=== PATIENT | female | born 1990 | race American Indian/Alaskan Native ===

== ENCOUNTER 2016-10-31 20:09 | Outpatient (CLI) | payer MEDICAID ==
[2016-10-31] MEDS ORDERED: LACTATED RINGERS 500 ML IV ONE (21:05)
--- NOTE | 2016-10-31 23:33 | Ultrasound Report ---
FINAL REPORT PROCEDURE: Limited obstetrical ultrasound. TECHNIQUE: Real-time limited sonographic examination was performed for evaluation of size, position, heartbeat, fluid volume for each fetus with image documentation (1 or more fetuses). CPT 46833 HISTORY: Placental scan for vaginal bleeding, . COMPARISON: No prior studies are available for comparison. FINDINGS: There is a single viable fetus in cephalic presentation. Cardiac activity is documented at 151 beats per minute. The placenta is anterior in location. Near the superior margin of the placenta there is a small elliptical area of decreased echogenicity. This measures 1.5 centimeters x 1.6 centimeters x 0.5 centimeters. This could represent a small area of placental separation or simply normal amniotic fluid at the margin of the placenta. Followup imaging may be indicated. IMPRESSION: Indeterminate finding at the superior edge of the placenta. Viable fetus.
[2016-11-01 01:58] VITALS: BP 97/63
== END 2016-10-31 22:15 | disposition home or self-care (01) ==
LOC: TRG 20:09
PROVIDERS: ATTEND Obstetrics & Gynecology
DX: O46.92 Antepartum hemorrhage, unspecified, second trimester (principal); O47.02 False labor before 37 completed weeks of gestation, second trimester; Z3A.22 22 weeks gestation of pregnancy
CPT/HCPCS: 76815; 86850; 86900; 86901

== ENCOUNTER 2017-02-24 20:40 | Outpatient (CLI) | payer MEDICAID ==
[2017-02-24 20:59] VITALS: BP 95/54
== END 2017-02-24 22:10 | disposition home or self-care (01) ==
LOC: TRG 20:40
PROVIDERS: ATTEND Obstetrics & Gynecology
DX: O47.1 False labor at or after 37 completed weeks of gestation (principal); Z3A.39 39 weeks gestation of pregnancy
CPT/HCPCS: 59025

== ENCOUNTER 2017-03-03 03:45 | Inpatient (IN) | payer MEDICAID ==
[2017-03-03] MEDS ORDERED: LACTATED RINGERS 1,000 ML IV ONE (04:16)
[2017-03-03] MEDS ORDERED: POLYCILLIN/NS 2 GM/100 ML 2 GM/100 ML BAG IV ONE (05:26)
[2017-03-03] MEDS ORDERED: ePHEDrine SULFATE IV PRN ×2 (05:32→08:34)
[2017-03-03] MEDS ORDERED: MINERAL OIL PO PRN (05:32)
[2017-03-03] MEDS ORDERED: BRETHINE SUB-Q PRN (05:32)
[2017-03-03] MEDS ORDERED: XYLOCAINE 2% INFILTRATI ONE (05:32)
[2017-03-03] MEDS ORDERED: ZOFRAN IV PRN (05:32)
--- NOTE | 2017-03-03 05:39 | History and Physical Report ---
History of Present Illness Date of examination: 03/03/17 (active labor with SROM) Date of admission: 03/03/17 05:25 History of present illness: EDC Confirmation: 03/03/2017 Gestational Age: 23 4/7 weeks Past History : 2 Term Births: 1 Premature Births: 0 Living Children: 1 Para: 1 Mult. Births: 0 Prev : 0 Prev. attempt? 0 Aborta: 0 Elect. Ab: 0 Spont. Ab: 0 Ectopics: 0 # 1 Delivery date: 02/06/2014 Weeks Gestation: 39 labor: no Delivery type: Hours of labor: 10 Anesthesia type: epidural Delivery location: [place] Sex: Male weight: 7-6 Name: Cheo Past Medical History: Negative Past Medical History Past Surgical History: Negative Past Surgical History Family History Summary: Other family member - Has No Family History of Ovarvian Cancer - Entered On: 11/08 Other family member - Has No Family History of Breast Cancer - Entered On: 2016 Other family member - Has Family History of Hypertension - Entered On: 11/08/2016 Other family member - Has Family History of CVA or Stroke - Entered On: 11/08/2016 Other family member - Has Family History Colon Cancer - Entered On: 11/08/2016 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 of genital herpes: no Genetic History Congenital Heart Defect: Mom: no Dad: no Yogi Disease: Mom: no Dad: no Thalassemia Mom: no Dad: no Neural Tube Defect Mom: no Dad: no Down's Syndrome Mom: no Dad: no Manan-Sachs Mom: no Dad: no Sickle Cell Disease/Trait Mom: no Dad: no Hemophilia Mom: no Dad: no Muscular Dystrophy Mom: no Dad: no Cystic Fibrosis Mom: no Dad: no [place] Chorea Mom: no Dad: no Mental Retardation Mom: no Dad: no Fragile X Mom: no Dad: no Other Genetic/Chromosomal Disorder Mom: no Dad: no Child w/other defect Mom: no Dad: no Enviromental Exposures Xray Exposure: no Medication, drug, or alcohol use since LMP: no Chemical/Other Exposure: no Exposure to Cat Liter: no Hx of Parvovirus (Fifth Disease): no Active Medications (reviewed today): FORMULA 27-1 MG ORAL TABS ( VIT-FE FUMARATE-FA) 1 po q day as directed Current Allergies: No known allergies Laboratory Results Routine Urinalysis Protein: Negative Glucose: Negative Urine HCG: positive Review of Systems General Complains of fatigue. Denies fever, chills, sweats, anorexia, weakness, malaise, weight loss and sleep disorder. Complains of pelvic pain. Denies vaginal discharge, incontinence, dysuria, hematuria, urinary frequency, amenorrhea, menorrhagia, abnormal vaginal bleeding, genital sores, decreased libido, painful periods, painful sex, urinary urgency, hot flashes, vaginal dryness, vaginal itching and vaginal odor. CV Denies chest pains, palpitations, syncope, dyspnea on exertion, orthopnea, PND and peripheral edema. Resp Denies cough, dyspnea at rest, excessive sputum, hemoptysis, wheezing and pleurisy. GI Denies nausea, vomiting, diarrhea, constipation, change in bowel habits, abdominal pain, melena, hematochezia, jaundice, gas/bloating, indigestion/ heartburn, dysphagia and odynophagia. Breast Denies left breast lump, right breast lump, nipple discharge, bloody discharge from nipple, breast pain, abnormal mammogram and breast enlargement. Psych Denies depression, anxiety, irritability and mood swings. PHYSICAL EXAM HEENT: normocephalic, no lesions or deformities Neck/Thyroid: supple, thyroid normal Skin no significant abnormal lesions or rashes Chest: respiratory effort normal, clear to auscultation Breasts: skin/areolae normal, no masses, no nipple discharge, no erythema/warmth /tenderness, and axillae normal. 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 Vulva/Vagina: No lesions, normal BUS, normal rugae Cervix: No lesions; no cervical motion tenderness Uterus: enlarged uterus 22-24 weeks in size Adnexae: Unable to palpate due to uterine size Rectovaginal: exam defered Past History - Obstetrical History Expected Date of Delivery: 03/03/17 Actual Gestation: 40 Week(s) 0 Day(s) : 2 Para: 1 Hx # Term Pregnancies: 1 Number of Pregnancies: 0 Spontaneous Abortions: 0 Induced : 0 Number of Living Children: 1 Medications and Allergies Allergies Allergy/AdvReac Type Severity Reaction Status Date / Time No Known Allergies Allergy Verified 03/03/17 03:53 Active Meds: Active Medications Ampicillin Sodium (Polycillin/Ns 2 Gm/100 Ml) 2 gm in 100 mls @ 100 mls/hr IV ONCE ONE PRN Reason: Protocol Stop: 03/03/17 06:25 Lactated Ringer's (Lactated Ringers) 1,000 mls @ 125 mls/hr IV DIRECT BIN Ampicillin Sodium (Polycillin/Ns 1 Gm/50 Ml) 1 gm in 50 mls @ 100 mls/hr IV Q4H BIN PRN Reason: Protocol - Vital Signs Vital signs: Vital Signs Pulse BP 84 102/61 03/03/17 04:02 03/03/17 04:02 Temp Pulse Resp BP Pulse Ox 80 102/58 100 03/03/17 05:23 03/03/17 05:23 03/03/17 04:53 - Physical Exam Breasts: Positive: deferred Cardiovascular: Regular rate, Normal S1, Normal S2 Abdomen: Positive: normal appearance, soft, normal bowel sounds. Negative: distention, tenderness Genitourinary (Female): Positive: normal perenium Vulva: both: normal Vagina: Positive: normal moisture. Negative: discharge Cervix: Negative: lesion, discharge Uterus: Positive: normal size, normal contour Adnexa: both: normal Anus/Rectum: Positive: normal perianal skin, heme negative. Negative: rectal mass, hemorrhoids Extremities: Positive: normal Deep Tendon Reflex Grade: Normal +2 - Obstetrical FHR: category 1 Uterine Contraction Monitor Mode: External Cervical Dilatation: 3.5 (per registered nurse bone marrow transplant) Cervical Effacement Percentage: 70 station: -2 Uterine Contraction Pattern: Regular Uterine Tone Measurement Phase: Resting Uterine Contraction Intensity: Moderate Results All other labs normal. GBS Positive Current OB Labs Blood Type: O (09/03/2016) Rh Type: positive (09/03/2016) Rh Antibody Screen: negative (09/03/2016) Hgb: 12.3 (09/03/2016) Hct: 35 (09/03/2016) Rubella: immune (09/03/2016) RPR: nonreactive (09/03/2016) Hep B Surface Antigen: negative (09/03/2016) HIV: negative (09/03/2016) Pap Smear: normal (09/03/2016) Assessment and Plan - Patient Problems (1) Group B Streptococcus carrier state affecting Onset Date: ~03/03/17 Current Visit: Yes Status: Acute Plan to address problem: Will start Ampicillin protocol for GBS treatment (2) Spontaneous rupture of membranes Onset Date: ~03/03/17 Current Visit: Yes Status: Acute Plan to address problem: 26yo @ 40 weeks with SROM clear fluid Pt states membranes ruptured @ 0200 Presented to Triage with c/o ctx SVE 3-4,70,-2 GBS+ All orders in EMR.
[2017-03-03] MEDS: SUBLIMAZE IV PRN ×2 (05:45→07:52)
[2017-03-03] MEDS ORDERED: PITOCin/NS 30 UNIT/500ML 30 UNITS/500 ML BAG IV SCH (06:00)
[2017-03-03] MEDS ORDERED: PITOCin/NS 20 UNIT/1000ML DRIP 20 UNITS/1,000 ML BAG IV SCH (06:00)
[2017-03-03] MEDS ORDERED: LACTATED RINGERS 1,000 ML IV SCH ×2 (06:00)
[2017-03-03 06:38] LABS: Basophils % (Auto) 0.1 % (0.0-1.8); Eosinophils % (Auto) 0.2 % (0.0-4.3); Hematocrit 26.5 % (30.3-42.9); Hemoglobin 8.9 gm/dl (10.1-14.3); Mean Corpuscular HGB Conc 34 % (30-34); Mean Corpuscular Hemoglobin 29 pg (28-32); Mean Corpuscular Volume 86 fl (79-97); Platelet Count 181 K/mm3 (140-440); Red Blood Count 3.07 M/mm3 (3.65-5.03); Red Cell Distribution Width 15.3 % (13.2-15.2); White Blood Count 10.4 K/mm3 (4.5-11.0)
--- NOTE | 2017-03-03 07:11 | Event Note ---
Date: 03/03/17 (pt tolerating ctx with Fentanyl) No cervical chg Will start Pitocin per protocol.
--- NOTE | 2017-03-03 07:58 | Progress Note ---
Assessment and Plan anticipate delivery - Patient Problems (1) Group B Streptococcus carrier state affecting Onset Date: ~03/03/17 Current Visit: Yes Status: Acute (2) Spontaneous rupture of membranes Onset Date: ~03/03/17 Current Visit: Yes Status: Acute Subjective - Subjective Date of service: 03/03/17 (internals placed) Interval history: EDC Confirmation: 03/03/2017 Gestational Age: 23 4/7 weeks Past History : 2 Term Births: 1 Premature Births: 0 Living Children: 1 Para: 1 Mult. Births: 0 Prev : 0 Prev. attempt? 0 Aborta: 0 Elect. Ab: 0 Spont. Ab: 0 Ectopics: 0 # 1 Delivery date: 02/06/2014 Weeks Gestation: 39 labor: no Delivery type: Hours of labor: 10 Anesthesia type: epidural Delivery location: [place] [facility] Sex: Male weight: 7-6 Name: Cheo Past Medical History: Negative Past Medical History Past Surgical History: Negative Past Surgical History Family History Summary: Other family member - Has No Family History of Ovarvian Cancer - Entered On: 11/08 Other family member - Has No Family History of Breast Cancer - Entered On: 2016 Other family member - Has Family History of Hypertension - Entered On: 11/08/2016 Other family member - Has Family History of CVA or Stroke - Entered On: 11/08/2016 Other family member - Has Family History Colon Cancer - Entered On: 11/08/2016 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 of genital herpes: no Genetic History Congenital Heart Defect: Mom: no Dad: no Yogi Disease: Mom: no Dad: no Thalassemia Mom: no Dad: no Neural Tube Defect Mom: no Dad: no Down's Syndrome Mom: no Dad: no Manan-Sachs Mom: no Dad: no Sickle Cell Disease/Trait Mom: no Dad: no Hemophilia Mom: no Dad: no Muscular Dystrophy Mom: no Dad: no Cystic Fibrosis Mom: no Dad: no [place] Chorea Mom: no Dad: no Mental Retardation Mom: no Dad: no Fragile X Mom: no Dad: no Other Genetic/Chromosomal Disorder Mom: no Dad: no Child w/other defect Mom: no Dad: no Enviromental Exposures Xray Exposure: no Medication, drug, or alcohol use since LMP: no Chemical/Other Exposure: no Exposure to Cat Liter: no Hx of Parvovirus (Fifth Disease): no Active Medications (reviewed today): FORMULA 27-1 MG ORAL TABS ( VIT-FE FUMARATE-FA) 1 po q day as directed Current Allergies: No known allergies Laboratory Results Routine Urinalysis Protein: Negative Glucose: Negative Urine HCG: positive Review of Systems General Complains of fatigue. Denies fever, chills, sweats, anorexia, weakness, malaise, weight loss and sleep disorder. Complains of pelvic pain. Denies vaginal discharge, incontinence, dysuria, hematuria, urinary frequency, amenorrhea, menorrhagia, abnormal vaginal bleeding, genital sores, decreased libido, painful periods, painful sex, urinary urgency, hot flashes, vaginal dryness, vaginal itching and vaginal odor. CV Denies chest pains, palpitations, syncope, dyspnea on exertion, orthopnea, PND and peripheral edema. Resp Denies cough, dyspnea at rest, excessive sputum, hemoptysis, wheezing and pleurisy. GI Denies nausea, vomiting, diarrhea, constipation, change in bowel habits, abdominal pain, melena, hematochezia, jaundice, gas/bloating, indigestion/ heartburn, dysphagia and odynophagia. Breast Denies left breast lump, right breast lump, nipple discharge, bloody discharge from nipple, breast pain, abnormal mammogram and breast enlargement. Psych Denies depression, anxiety, irritability and mood swings. PHYSICAL EXAM HEENT: normocephalic, no lesions or deformities Neck/Thyroid: supple, thyroid normal Skin no significant abnormal lesions or rashes Chest: respiratory effort normal, clear to auscultation Breasts: skin/areolae normal, no masses, no nipple discharge, no erythema/warmth /tenderness, and axillae normal. 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 Vulva/Vagina: No lesions, normal BUS, normal rugae Cervix: No lesions; no cervical motion tenderness Uterus: enlarged uterus 22-24 weeks in size Adnexae: Unable to palpate due to uterine size Rectovaginal: exam defered Patient reports: movement normal Objective - Vital Signs Vital Signs: Vital Signs - 12hr 03/03/17 03/03/17 03/03/17 04:02 04:03 04:08 Temperature Pulse Rate 84 86 92 H Respiratory Rate Blood Pressure 102/61 O2 Sat by Pulse 98 98 Oximetry 03/03/17 03/03/17 03/03/17 04:13 04:18 04:23 Temperature Pulse Rate 91 H 89 90 Respiratory Rate Blood Pressure O2 Sat by Pulse 98 98 98 Oximetry 03/03/17 03/03/17 03/03/17 04:28 04:33 04:38 Temperature Pulse Rate 90 98 H 86 Respiratory Rate Blood Pressure O2 Sat by Pulse 99 99 100 Oximetry 03/03/17 03/03/17 03/03/17 04:43 04:48 04:53 Temperature Pulse Rate 86 90 94 H Respiratory Rate Blood Pressure O2 Sat by Pulse 99 100 100 Oximetry 03/03/17 03/03/17 03/03/17 05:23 05:45 05:54 Temperature Pulse Rate 80 84 Respiratory 18 Rate Blood Pressure 102/58 97/54 O2 Sat by Pulse Oximetry 03/03/17 03/03/17 03/03/17 06:25 06:33 06:38 Temperature Pulse Rate 93 H 92 H 87 Respiratory Rate Blood Pressure 105/68 O2 Sat by Pulse 100 100 Oximetry 03/03/17 03/03/17 03/03/17 06:43 06:48 06:53 Temperature Pulse Rate 93 H 94 H 87 Respiratory Rate Blood Pressure 100/63 O2 Sat by Pulse 99 98 98 Oximetry 03/03/17 03/03/17 03/03/17 06:58 07:03 07:04 Temperature 98.4 F Pulse Rate 85 81 89 Respiratory 18 Rate Blood Pressure 103/68 O2 Sat by Pulse 99 99 Oximetry 03/03/17 03/03/17 03/03/17 07:08 07:09 07:13 Temperature Pulse Rate 96 H 97 H 85 Respiratory Rate Blood Pressure 105/67 O2 Sat by Pulse 98 100 Oximetry 03/03/17 03/03/17 03/03/17 07:18 07:23 07:25 Temperature Pulse Rate 91 H 90 90 Respiratory Rate Blood Pressure 90/54 O2 Sat by Pulse 99 99 93 Oximetry 03/03/17 03/03/17 03/03/17 07:28 07:33 07:38 Temperature Pulse Rate 95 H 85 81 Respiratory Rate Blood Pressure O2 Sat by Pulse 97 99 100 Oximetry 03/03/17 03/03/17 03/03/17 07:43 07:48 07:52 Temperature Pulse Rate 92 H 85 84 Respiratory 18 Rate Blood Pressure O2 Sat by Pulse 100 100 87 Oximetry 03/03/17 03/03/17 07:53 07:58 Temperature Pulse Rate 98 H 85 Respiratory Rate Blood Pressure O2 Sat by Pulse 100 100 Oximetry - Exam Breasts: deferred Cardiovascular: Regular rate Lungs: Normal air movement Abdomen: Present: normal appearance, soft. Absent: distention, tenderness Uterus: Present: normal FHR: auscultation normal, category 2 Uterine Contraction Monitor Mode: Internal Cervical Dilatation: 8 (ISE/IUPC placed) Cervical Effacement Percentage: 100 station: 0 Uterine Contraction Pattern: Regular Uterine Tone Measurement Phase: Resting Uterine Contraction Intensity: Moderate Extremities: normal Deep Tendon Reflex Grade: Normal +2 - Labs Labs: Abnormal Labs 03/03/17 05:49 RBC 3.07 L Hgb 8.9 L Hct 26.5 L RDW 15.3 H Arroyo % (Auto) 8.8 H Arroyo # 0.9 H Seg Neutrophils % 73.9 H Laboratory Results - last 24 hr 03/03/17 03/03/17 05:49 06:02 WBC 10.4 RBC 3.07 L Hgb 8.9 L Hct 26.5 L MCV 86 MCH 29 MCHC 34 RDW 15.3 H Plt Count 181 Lymph % (Auto) 17.0 Arroyo % (Auto) 8.8 H Eos % (Auto) 0.2 Baso % (Auto) 0.1 Lymph # 1.8 Arroyo # 0.9 H Eos # 0.0 Baso # 0.0 Seg Neutrophils % 73.9 H Seg Neutrophils # 7.7 Blood Type O POSITIVE Antibody Screen Negative
[2017-03-03] MEDS ORDERED: fentaNYL-BUPIV 2 MCG/ML-0.125% 200 MCG/100 ML BAG EPIDURAL ONE (08:10)
[2017-03-03] MEDS: fentaNYL-BUPIV 2 MCG/ML-0.125% 200 MCG/100 ML BAG EPIDURAL SCH ×2 (08:30→09:09)
[2017-03-03] MEDS ORDERED: NARCAN 2 MG/2 ML IV PRN (08:34)
--- NOTE | 2017-03-03 08:34 | Anesthesia Consultation ---
Anesthesia Consult and Med Hx Date of service: 03/03/17 - Airway Anesthetic Teeth Evaluation: Good ROM Head & Neck: Adequate Mental/Hyoid Distance: Adequate Mallampati Class: Class II Intubation Access Assessment: Probably Good - Pre-Operative Health Status ASA Pre-Surgery Classification: ASA2 Proposed Anesthetic Plan: Epidural, Spinal - Pulmonary Hx Asthma: No COPD: No Hx Pneumonia: No - Cardiovascular System Hx Hypertension: No - Central Nervous System Hx Seizures: No Hx Psychiatric Problems: No - Endocrine Hx Renal Disease: No Hx End Stage Renal Disease: No Hx Hypothyroidism: No Hx Hyperthyroidism: No - Hematic Hx Anemia: Yes Hx Sickle Cell Disease: No - Other Systems Hx Alcohol Use: No
[2017-03-03] MEDS ORDERED: CYTOTEC ONE (09:05)
[2017-03-03] MEDS ORDERED: CYTOTEC PR ONE (09:30)
[2017-03-03] MEDS ORDERED: POLYCILLIN/NS 1 GM/50 ML 1 GM/50 ML BAG IV SCH (09:30)
[2017-03-03] MEDS ORDERED: SODIUM CHLORIDE FLUSH SYRINGE 10 ML IV PRN (10:00)
[2017-03-03] MEDS ORDERED: LANSINOH TP PRN (10:30)
[2017-03-03] MEDS ORDERED: PHENERGAN PO PRN (10:30)
[2017-03-03] MEDS ORDERED: BENADRYL PO PRN (10:30)
[2017-03-03] MEDS ORDERED: TUCKS PAD TP PRN (10:30)
[2017-03-03] MEDS ORDERED: TYLENOL PO PRN (10:30)
[2017-03-03] MEDS ORDERED: Fluarix Quad 2017-2018(36 MOS+) IM ONE (12:00)
[2017-03-03] MEDS: MOTRIN PO SCH ×2 (12:38→23:34)
[2017-03-03] MEDS: NORCO 5/325 PO PRN (12:54)
--- NOTE | 2017-03-03 13:28 | Procedure Note ---
OB Delivery Note - Delivery Date of Delivery: 03/03/17 Insurance Claims Adjuster: MADELIN RICKS Estimated blood loss: other (800cc) - Vaginal Delivery presentation: vertex Delivery position: OA Intrapartum events: PROM->1hr before delivery, mult.variable deceleratio Delivery induction: none Delivery augmentation: pitocin Delivery monitor: internal FHT, internal uterine Route of delivery: Delivery placenta: spontaneous, uterine exploration Delivery cord: 3 umbilical vessels Episiotomy: midline Delivery laceration: 2nd degree Delivery repair: vicryl Anesthesia: epidural Delivery comments: live born male over 2nd degree episiotomy Baby to mom's abdomen skin to skin Cord blood obtained, Placenta and membrane del complete and intact, 3 vessel cord. Pit IVFs. Uterus lower segment boggy, slow to firm with massage and IV pit. Cytotec 800mcg MS placed. Repair done with 2-0 vicryl, usual fashion. Pt tolerated well. 7/8, EBL 800, Wgt 8-0 FF @ umb Lochia small Mom and baby remain LDR stable. PO Methergine started PP @ 1400. - Infant A at 1 minute: 7 at 5 minutes: 9 Infant Gender: Male (wgt 8-0)
[2017-03-03] MEDS: METHERGINE PO SCH ×2 (14:25→22:14)
[2017-03-03 18:55] LABS: Hematocrit 28.2 % (30.3-42.9); Hemoglobin 9.8 gm/dl (10.1-14.3)
[2017-03-03] MEDS ORDERED: DULCOLAX PR PRN (22:00)
[2017-03-03] MEDS ORDERED: MILK OF MAGNESIA PO PRN (22:00)
[2017-03-04] MEDS: NORCO 5/325 PO PRN (01:41)
[2017-03-04] MEDS: MOTRIN PO SCH ×5 (05:13→23:26)
[2017-03-04] MEDS: METHERGINE PO SCH (05:13)
[2017-03-04] MEDS ORDERED: BOOSTRIX IM ONE (06:00)
--- NOTE | 2017-03-04 08:29 | Progress Note ---
Assessment and Plan patient doing well, no complaints except for slight perineal pain. Lochia scant , VSSAF, H&H 9.8/28.2, without concerns. GBS positive without adequate treatment prior to delivery. Plan to continue pathway and d/ c home tomorrow. - Patient Problems (1) Spontaneous vaginal delivery Current Visit: Yes Status: Acute Subjective - Subjective Date of service: 03/04/17 Principal diagnosis: day #1 s/p Patient reports: appetite normal, voiding normally, pain well controlled, ambulating normally, no dizzy ambulation, no nauseated : doing well, nursing well Objective - Vital Signs Latest vital signs: Vital Signs Temp Pulse Resp BP BP Pulse Ox 03/04/17 04:00 98.6 F 69 16 110/67 03/03/17 23:30 98.6 F 77 16 99/77 03/03/17 20:30 98.6 F 64 16 101/69 03/03/17 16:38 99.4 F 72 20 108/74 03/03/17 11:00 99.3 F 92 H 18 95/59 100 03/03/17 10:25 88 116/74 03/03/17 10:10 88 115/64 03/03/17 09:55 81 107/64 03/03/17 09:40 84 123/70 03/03/17 09:26 96 H 139/66 03/03/17 09:18 95 H 94/55 03/03/17 09:14 86 98/55 03/03/17 09:12 88 95/50 03/03/17 09:09 90 100/56 03/03/17 09:06 76 97/52 03/03/17 09:03 80 99/52 03/03/17 09:00 86 80/53 03/03/17 08:58 95 H 75/40 03/03/17 08:54 83 98/59 03/03/17 08:52 87 96/48 03/03/17 08:48 96 H 115/52 03/03/17 08:45 82 116/60 03/03/17 08:44 78 94 03/03/17 08:43 80 100 03/03/17 08:42 78 108/69 03/03/17 08:39 66 109/71 03/03/17 08:38 71 100 03/03/17 08:36 71 110/70 03/03/17 08:33 66 104/68 100 03/03/17 08:30 90 111/79 03/03/17 08:28 77 100 Intake and Output 03/03/17 03/04/17 03/04/17 23:59 07:59 15:59 Intake Total 550 600 Output Total 400 Balance 150 600 Intake: Oral 250 Intake, Free Water 300 600 Output: Urine 400 Void 400 Other: Total, Intake Amount 250 Total, Output Amount 400 - Exam Breasts: Present: normal, Cardiovascular: Present: Regular rate Lungs: Present: Clear to auscultation, Normal air movement Abdomen: Present: normal appearance, soft Vulva: both: laceration/episiotomy Uterus: Present: normal, firm, fundal height at umbilicus Extremities: Present: normal Deep Tendon Reflex Grade: Normal +2 Incision: Present: normal, dry, intact - Labs Labs: Abnormal lab results 03/03/17 Range/Units 18:25 Hgb 9.8 L (10.1-14.3) gm/dl Hct 28.2 L (30.3-42.9) %
[2017-03-04] MEDS ORDERED: M-M-R II VACCINE SUB-Q ONE (11:00)
[2017-03-05] MEDS: MOTRIN PO SCH ×2 (05:13→11:58)
--- NOTE | 2017-03-05 06:45 | Discharge Summary ---
Providers - Providers Date of Admission: 03/03/17 05:25 Date of discharge: 03/05/17 (pt agrees with d/c ) Attending physician: JACOBY LUIS Primary care physician: JACOBY LUIS Hospitalization Reason for admission: active labor, rupture of membranes Delivery: Episiotomy: midline Laceration: 2nd degree Incision: normal, dry, intact Other procedures: none complications: none Discharge diagnosis: IUP at term delivered [place] baby: male Hospital course: uncomplicated vaginal delivery Pt w/o complaint VSS FF below umb Lochia small Perineum slight swelling intact H &H stable Chronic anemain Pt is asymptomatic Doing well s/p vag delivery P: d/c today with instructions RTO 4 weeks PP care One week circ RX provided. Condition at discharge: Good Disposition: DC-01 TO HOME OR SELFCARE - Discharge Diagnoses (1) Spontaneous vaginal delivery Status: Acute Comment: rto 4 weeks PP care Plan - Discharge Medications Prescriptions: Docusate Sodium [Colace] 100 mg PO BID PRN #60 capsule PRN Reason: Constipation Ferrous Sulfate [Feosol 325 MG tab] 325 mg PO BID #60 tablet Ibuprofen [Motrin 800 MG tab] 800 mg PO TID PRN #30 tablet PRN Reason: Pain Lidocain2.5%/Prilocai2.5% [Emla] 5 gm TP PRN #1 tube - Provider Discharge Summary Activity: routine, no sex for 6 weeks, no heavy lifting 4 weeks, no strenuous exercise Diet: routine Instructions: routine Additional instructions: [] Smoking cessation referral if applicable(refer to patient education folder for contact #) [] Refer to [facility] Booklet Call your doctor immediately for: * Fever > 100.5 * Heavy vaginal bleeding ( >1 pad per hour) * Severe persistent headache * Shortness of breath * Reddened, hot, painful area to leg or breast * Drainage or odor from incision. * Keep incision clean and dry at all times and follow doctor's instructions regarding bathing/showering - Follow up plan Follow up: JACOBY LUIS MD [Primary Care Provider] - 7 Days (Congratulations! Please call [phone] to schedule your visit in 4 weeks and your son's circumcision in 1 week. Bring the EMLA cream with you to his visit. Take medications as prescribed. Call with concerns.)
[2017-03-05 16:22] VITALS: BP 98/66
== END 2017-03-05 14:45 | disposition home or self-care (01) | DRG 775 ==
LOC: TRG 03:45 → LD 05:25 → OB 11:41
PROVIDERS: ADMIT Obstetrics & Gynecology; ATTEND Obstetrics & Gynecology
PROC: 10E0XZZ Delivery of Products of Conception, External Approach (ICD-10-PCS; principal; 2017-03-03)
PROC: 0KQM0ZZ Repair Perineum Muscle, Open Approach (ICD-10-PCS; 2017-03-03)
PROC: 3E0R3BZ Introduction of Anesthetic Agent into Spinal Canal, Percutaneous Approach (ICD-10-PCS; 2017-03-03)
PROC: 0W8NXZZ Division of Female Perineum, External Approach (ICD-10-PCS; 2017-03-03)
PROC: 3E0234Z Introduction of Serum, Toxoid and Vaccine into Muscle, Percutaneous Approach (ICD-10-PCS; 2017-03-03)
PROC: 00HU33Z Insertion of Infusion Device into Spinal Canal, Percutaneous Approach (ICD-10-PCS; 2017-03-03)
DX: O42.92 Full-term premature rupture of membranes, unspecified as to length of time between rupture and onset of labor (principal); Z3A.40 40 weeks gestation of pregnancy; Z37.0 Single live birth; O76 Abnormality in fetal heart rate and rhythm complicating labor and delivery; O99.824 Streptococcus B carrier state complicating childbirth; O70.1 Second degree perineal laceration during delivery; Z23 Encounter for immunization
CPT/HCPCS: 36415; 85014; 85018; 85025; 86592; 86850; 86900; 86901; 88307; 90471; 90686; 90715; 99211; A6250; G0463; J0290; J2590; J3010; J7120

== ENCOUNTER 2018-11-25 09:19 | Emergency (ER) | payer MEDICAID, OTHER ==
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
[2018-11-25 10:16] LABS: Hematocrit 33.9 % (30.3-42.9); Hemoglobin 11.9 gm/dl (10.1-14.3); Mean Corpuscular HGB Conc 35 % (30-34); Mean Corpuscular Volume 88 fl (79-97); Platelet Count 194 K/mm3 (140-440); Red Blood Count 3.84 M/mm3 (3.65-5.03); Red Cell Distribution Width 14.2 % (13.2-15.2)
[2018-11-25 10:40] LABS: Alanine Aminotransferase 13 units/L (7-56); Albumin 3.9 g/dL (3.9-5); BUN/Creatinine Ratio 12; Blood Urea Nitrogen 7 mg/dL (7-17); Calcium 8.8 mg/dL (8.4-10.2); Hemolysis Index 6
[2018-11-25] MEDS ORDERED: ZOFRAN ODT PO ONE (10:40)
[2018-11-25] MEDS ORDERED: ZOFRAN ODT ONE (10:43)
[2018-11-25 11:00] LABS: Bilirubin,Urine NEG (Negative); Blood,Urine NEG (Negative); Color,Urine Yellow (Yellow); Mucus,Urine FEW /HPF; Protein,Urine <15 mg/dL mg/dL (Negative); Urobilinogen,Urine < 2.0 mg/dL (<2.0); WBC,Urine < 1.0 /HPF (0.0-6.0)
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
--- NOTE | 2018-11-25 12:30 | XRay Report ---
LUMBOSACRAL SPINE, 3 VIEWS: History: Back pain Findings: The vertebral bodies, disk spaces and posterior elements are intact. No compression deformity or malalignment. The SI joints are symmetric and unremarkable. Impression: 1. No evidence for acute injury to the lumbar spine.
--- NOTE | 2018-11-25 12:31 | XRay Report ---
THORACIC SPINE, 2 VIEWS: HISTORY: back pain. Normal bone mineralization. No evidence for compression deformity, malalignment, or bone lesion. The posterior ribs are intact. The paraspinal soft tissues are within normal limits. IMPRESSION: Thoracic spine within normal limits.
[2018-11-25 13:14] VITALS: BP 97/61
== END 2018-11-25 13:15 | disposition home or self-care (01) ==
LOC: ED 09:19
DX: O9A.211 Injury, poisoning and certain other consequences of external causes complicating pregnancy, first trimester (principal); S39.012A Strain of muscle, fascia and tendon of lower back, initial encounter; O21.9 Vomiting of pregnancy, unspecified; M54.6 Pain in thoracic spine; Z79.1 Long term (current) use of non-steroidal anti-inflammatories (NSAID); V89.2XXA Person injured in unspecified motor-vehicle accident, traffic, initial encounter; Y93.89 Activity, other specified; Y92.488 Other paved roadways as the place of occurrence of the external cause; Y99.8 Other external cause status; Z3A.01 Less than 8 weeks gestation of pregnancy
CPT/HCPCS: 36415; 72070; 72072; 72100; 76801; 76817; 80053; 81001; 84702; 84703; 85027; Q0162

== ENCOUNTER 2019-06-14 11:45 | Outpatient (CLI) | payer MEDICAID ==
[2019-06-14] MEDS ORDERED: LACTATED RINGERS 1,000 ML IV SCH (12:00)
[2019-06-14] MEDS ORDERED: ONDANSETRON 4 MG ODT TAB PO ONE (13:00)
[2019-06-14 14:16] VITALS: BP 98/62
== END 2019-06-14 14:55 | disposition home or self-care (01) ==
LOC: TRG 11:45
PROVIDERS: ATTEND Obstetrics & Gynecology
DX: O21.2 Late vomiting of pregnancy (principal); O26.893 Other specified pregnancy related conditions, third trimester; R42 Dizziness and giddiness; O47.1 False labor at or after 37 completed weeks of gestation; Z3A.37 37 weeks gestation of pregnancy
CPT/HCPCS: 59025; 82962; 96360; 96361; J7120; 96366; Q0162

== ENCOUNTER 2019-07-09 10:40 | Outpatient (CLI) | payer MEDICAID ==
[2019-07-09 11:28] VITALS: BP 105/68
--- NOTE | 2019-07-09 12:29 | Ultrasound Report ---
OBSTETRICAL ULTRASOUND WITH BIOPHYSICAL PROFILE HISTORY: Leaking fluid. FINDINGS: Limited obstetrical ultrasound was performed demonstrating a single viable intrauterine pre gnancy. heart tones are 129 bpm. Amniotic fluid index is 8.1 cm. The deepest quadrant is quadrant 2 (2.5 cm). Biophysical profile is 8/8. IMPRESSION: 1. Amniotic fluid index 8.1 cm. 2. Biophysical profile 8/8. Signer Name: Suraj Nino MD Signed: 07/09/2019 12:25 PM Workstation Name: [id number]
[2019-07-09 12:46] LABS: Bacteria,Urine 1+ /HPF (Negative); Bilirubin,Urine NEG (Negative); Blood,Urine SM (Negative); Color,Urine Yellow (Yellow); Mucus,Urine FEW /HPF; Protein,Urine <15 mg/dL mg/dL (Negative); Urobilinogen,Urine < 2.0 mg/dL (<2.0)
== END 2019-07-09 15:10 | disposition home or self-care (01) ==
LOC: TRG 10:40
PROVIDERS: ATTEND Obstetrics & Gynecology
DX: O42.92 Full-term premature rupture of membranes, unspecified as to length of time between rupture and onset of labor (principal); O26.853 Spotting complicating pregnancy, third trimester; Z3A.40 40 weeks gestation of pregnancy
CPT/HCPCS: 76815; 76819; 81001

== ENCOUNTER 2019-07-11 10:45 | Inpatient (IN) | payer MEDICAID ==
[2019-07-11] MEDS ORDERED: ePHEDrine SULFATE 50 MG/1 ML INJ IV PRN ×2 (11:17→13:22)
[2019-07-11] MEDS ORDERED: TERBUTALINE 1 MG/1 ML INJ SUB-Q PRN (11:17)
[2019-07-11] MEDS ORDERED: MINERAL OIL 30 ML ORAL LIQD PO PRN (11:17)
[2019-07-11] MEDS ORDERED: fentaNYL 100 MCG/2 ML INJ IV PRN (11:17)
[2019-07-11] MEDS ORDERED: ONDANSETRON 4 MG/2 ML INJ IV PRN (11:17)
--- NOTE | 2019-07-11 11:24 | History and Physical Report ---
History of Present Illness Date of examination: 07/11/19 Date of admission: Active labor History of present illness: EDC Confirmation: 07/05/2019 Past History : 3 Term Births: 2 Premature Births: 0 Living Children: 2 Para: 2 Mult. Births: 0 Prev : 0 Prev. attempt? 0 Aborta: 0 Elect. Ab: 0 Spont. Ab: 0 Ectopics: 0 # 1 Delivery date: 02/06/2014 Weeks Gestation: 39 labor: no Delivery type: Hours of labor: 10 Anesthesia type: epidural Delivery location: [place] Sex: Male weight: 7-6 Name: Cheo # 2 Delivery date: 03/03/2017 Weeks Gestation: 40 Delivery type: Vaginal Anesthesia type: epidural Delivery location: [facility] Sex: male weight: 8 Comments: GBS+ Past Medical History: Reviewed history from 11/08/2016 and no changes required: Negative Past Medical History Past Surgical History: Reviewed history from 11/08/2016 and no changes required: Negative Past Surgical History 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 Infection History Hx of STD: none HIV Risk Eval: low risk Hepatitis B Risk Eval: low risk Personal hx. of genital herpes: no Partner hx. of genital herpes: no Rash, Viral, or Febrile illness since last LMP? no Varicella/Chicken Pox Status: Previous Disease Genetic History Congenital Heart Defect: Mom: no Dad: no Yogi Disease: Mom: no Dad: no Thalassemia Mom: no Dad: no Neural Tube Defect Mom: no Dad: no Down's Syndrome Mom: no Dad: no Manan-Sachs Mom: no Dad: no Sickle Cell Disease/Trait Mom: no Dad: no Hemophilia Mom: no Dad: no Muscular Dystrophy Mom: no Dad: no Cystic Fibrosis Mom: no Dad: no Shravan Chorea Mom: no Dad: no Mental Retardation Mom: no Dad: no Fragile X Mom: no Dad: no Other Genetic/Chromosomal Disorder Mom: no Dad: no Child w/other defect Mom: no Dad: no Enviromental Exposures Xray Exposure: no Medication, drug, or alcohol use since LMP: no Chemical/Other Exposure: no Exposure to Cat Liter: no Hx of Parvovirus (Fifth Disease): no Occupational Exposure to Children: none Active Medications: PLUS 27-1 MG ORAL TABLET ( VIT-FE FUMARATE-FA) 1 po Current Allergies (reviewed today): No known allergies Past History Past Medical History: other (see HPI) Past Surgical History: other (see HPI) 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) Family/Genetic History: other (see HPI) - Obstetrical History Expected Date of Delivery: 07/05/19 Actual Gestation: 40 Week(s) 6 Day(s) : 3 Para: 2 Hx # Term Pregnancies: 2 Number of Pregnancies: 0 Spontaneous Abortions: 0 Induced : 0 Number of Living Children: 2 Medications and Allergies Allergies Allergy/AdvReac Type Severity Reaction Status Date / Time No Known Allergies Allergy Verified 11/25/18 09:29 Home Medications Medication Instructions Recorded Confirmed Last Taken Type Docusate Sodium [Colace] 100 mg PO BID PRN #60 capsule 03/05/17 Unknown Rx Ferrous Sulfate [Feosol 325 MG tab] 325 mg PO BID #60 tablet 03/05/17 Unknown Rx Ibuprofen [Motrin 800 MG tab] 800 mg PO TID PRN #30 tablet 03/05/17 Unknown Rx Lidocain2.5%/Prilocai2.5% [Emla] 5 gm TP PRN #1 tube 03/05/17 Unknown Rx Ondansetron [Zofran Odt] 4 mg PO Q8HR PRN #12 tab.rapdis 11/25/18 Unknown Rx Active Meds: Active Medications Ephedrine Sulfate (Ephedrine Sulfate) 10 mg IV Q2M PRN PRN Reason: Hypotension Fentanyl (Sublimaze) 100 mcg IV Q2H PRN PRN Reason: Labor Pain Oxytocin/Sodium Chloride (Pitocin/Ns 20 Unit/1000ml Drip) 20 units in 1,000 mls @ 125 mls/hr IV DIRECT BIN Lactated Ringer's (Lactated Ringers) 1,000 mls @ 125 mls/hr IV DIRECT BIN Lidocaine (Xylocaine 2%) 20 ml INFILTRATI ONCE ONE Stop: 07/11/19 11:18 Mineral Oil (Mineral Oil) 30 ml PO QHS PRN PRN Reason: Constipation Ondansetron HCl (Zofran) 4 mg IV Q8H PRN PRN Reason: Nausea And Vomiting Terbutaline Sulfate (Brethine) 0.25 mg SUB-Q ONCE PRN PRN Reason: Hyperstimulation/Hypertonicity Review of Systems All systems: negative - Vital Signs Vital signs: Vital Signs Pulse BP 87 108/66 07/11/19 10:57 07/11/19 10:57 Temp Pulse Resp BP Pulse Ox 98.3 F 86 18 103/70 07/11/19 11:10 07/11/19 11:12 07/11/19 11:10 07/11/19 11:12 - Physical Exam Breasts: Positive: normal Cardiovascular: Regular rate Lungs: Positive: Clear to auscultation, Normal air movement Abdomen: Positive: normal appearance, soft Genitourinary (Female): Positive: normal external genitalia, normal perenium Vulva: both: normal Vagina: Positive: normal moisture Uterus: Positive: normal size, normal contour Anus/Rectum: Positive: normal perianal skin Extremities: Positive: normal Deep Tendon Reflex Grade: Normal +2 - Obstetrical FHR: category 1 Uterine Contraction Monitor Mode: External Cervical Dilatation: 7 (forebag AROM'd - thick mec) Cervical Effacement Percentage: 90 station: -2 Uterine Contraction Frequency (min): 4-6 Uterine Contraction Duration: 60 Uterine Contraction Pattern: Regular Uterine Tone Measurement Phase: Contraction Uterine Contraction Intensity: Moderate Results Result Diagrams: 07/11/19 11:15 All other labs normal. Assessment and Plan 28y/o @ 40+6 presented in active labor, GBS neg. Admission orders in EMR. epidural prn - Patient Problems (1) 40 weeks gestation of Current Visit: No Status: Acute (2) Active labor Current Visit: No Status: Acute
[2019-07-11 11:38] LABS: Hemoglobin 10.1 gm/dl (10.1-14.3); Mean Corpuscular HGB Conc 34 % (30-34); Mean Corpuscular Volume 83 fl (79-97); Platelet Count 188 K/mm3 (140-440); Red Blood Count 3.59 M/mm3 (3.65-5.03); Red Cell Distribution Width 16.7 % (13.2-15.2)
[2019-07-11] MEDS: LACTATED RINGERS 1,000 ML IV SCH ×2 (11:45→13:27)
[2019-07-11] MEDS ORDERED: OXYTOCIN 20 UNIT/1000ML DRIP 20 UNITS/1,000 ML BAG IV SCH ×2 (12:00→18:08)
[2019-07-11] MEDS ORDERED: LIDOCAINE (2%) 20 MG/1 ML VIAL 20 ML MDV INFILTRATI ONE (12:00)
[2019-07-11] MEDS ORDERED: DEXMEDETOMIDINE 200 MCG/2 ML VIAL IV ONE (13:08)
[2019-07-11] MEDS ORDERED: NALOXONE 2 MG/2 ML INJ IV PRN (13:22)
--- NOTE | 2019-07-11 13:24 | Anesthesia Consultation ---
Anesthesia Consult and Med Hx Date of service: 07/11/19 - Airway Anesthetic Teeth Evaluation: Good ROM Head & Neck: Adequate Mental/Hyoid Distance: Adequate Mallampati Class: Class II Intubation Access Assessment: Probably Good - Pulmonary Exam CTA: Yes - Cardiac Exam Cardiac Exam: RRR - Pre-Operative Health Status ASA Pre-Surgery Classification: ASA2 Proposed Anesthetic Plan: Epidural - Pulmonary Hx Asthma: No COPD: No Hx Pneumonia: No - Cardiovascular System Hx Hypertension: No - Central Nervous System Hx Seizures: No Hx Psychiatric Problems: No - Endocrine Hx Renal Disease: No Hx End Stage Renal Disease: No Hx Hypothyroidism: No Hx Hyperthyroidism: No - Hematic Hx Anemia: No Hx Sickle Cell Disease: No - Other Systems Hx Alcohol Use: Yes
[2019-07-11] MEDS ORDERED: OXYTOCIN DRIP 30,000 MILLIUNITS/500 ML BAG IV ONE (13:45)
[2019-07-11] MEDS ORDERED: OXYTOCIN DRIP 30 UNITS/500 ML BAG IV SCH (14:00)
[2019-07-11] MEDS ORDERED: fentaNYL-BUPIV 2 MCG/ML-0.125% 200 MCG/100 ML BAG EPIDURAL SCH (14:00)
[2019-07-11] MEDS ORDERED: miSOPROStol 200 MCG TAB ONE (14:26)
[2019-07-11] MEDS ORDERED: miSOPROStol 200 MCG TAB PR ONE (14:27)
--- NOTE | 2019-07-11 14:36 | Procedure Note ---
OB Delivery Note - Delivery Date of Delivery: 07/11/19 ( female, PPH) Director On Air: SISSY FRANCO Estimated blood loss: other (600) - Vaginal Delivery presentation: vertex Delivery position: OA Intrapartum events: meconium, hemorrhage Delivery induction: none Delivery augmentation: rupture of membranes, pitocin Delivery monitor: external FHT, external uterine Route of delivery: Delivery placenta: spontaneous Delivery cord: 3 umbilical vessels Episiotomy: none Delivery laceration: none Anesthesia: epidural Delivery comments: female del RENUKA over intact perineum, vigorous and crying, placed skin to skin on mother's abdomen. Cord clamped and cut after cessation of pulsation. Cord blood collected, placenta del intact and complete. no lacerations to repair. uterus boggy after Pit IVF bolus and bleeding moderate, fundus firmed with massage but became boggy shortly after. Cytotec 800mcg placed per rectum. EBL 600. Apgars 8/9, weight 7#4.8oz. mother and baby remain LDR stable. - A at 1 minute: 8 at 5 minutes: 9 Gender: Female (7#4.8oz)
[2019-07-11] MEDS ORDERED: PROMETHAZINE 25 MG RECT SUPP PR PRN (18:08)
[2019-07-11] MEDS ORDERED: PROMETHAZINE 25 MG TAB PO PRN (18:08)
[2019-07-11] MEDS ORDERED: diphenhydrAMINE 25 MG CAP PO PRN (18:08)
[2019-07-11] MEDS ORDERED: WITCH HAZEL/ GLYCERIN PAD TP PRN (18:08)
[2019-07-11] MEDS ORDERED: LANOLIN/ZINC/DIMETHICONE (LANSINOH) 7 GM TP PRN (18:08)
[2019-07-11] MEDS ORDERED: MAGNESIUM HYDROXIDE (MOM) ORAL LIQD UDC PO PRN (18:08)
[2019-07-11] MEDS ORDERED: IBUPROFEN 600 MG TAB PO SCH (18:08)
[2019-07-11] MEDS: FERROUS SULFATE 325 MG TAB PO SCH (21:34)
[2019-07-11] MEDS: IBUPROFEN 800 MG TAB PO SCH (23:11)
[2019-07-12 01:31] LABS: Hematocrit 20.8 % (30.3-42.9); Hemoglobin 7.3 gm/dl (10.1-14.3)
[2019-07-12] MEDS ORDERED: oxyCODONE /ACETAMINOPHEN 5-325MG TAB PO ONE (01:48)
[2019-07-12] MEDS: IBUPROFEN 800 MG TAB PO SCH ×3 (05:42→18:27)
--- NOTE | 2019-07-12 08:00 | Discharge Summary ---
Providers - Providers Date of Admission: 07/11/19 10:46 Date of discharge: 07/12/19 (Pt desires to go home.) Attending physician: PRAVEENA CHAND Primary care physician: PRAVEENA CHAND Hospitalization Reason for admission: active labor Delivery: Episiotomy: none Laceration: none Other procedures: none complications: other (Pt with 600ml of blood loss after delivery. ) Discharge diagnosis: IUP at term delivered baby: female Hospital course: S: Doing well. States pain well controlled. Passing flatus and ambulating without difficulty. O: VSS. Minimal bleeding, FF@U. H/H Condition at discharge: Good Disposition: DC-01 TO HOME OR SELFCARE Plan - Discharge Medications Prescriptions: RX: Ferrous Sulfate [Feosol 325 MG tab] 325 mg PO BID #60 tablet Ibuprofen [Motrin] 800 mg PO Q8HR PRN #90 tablet PRN Reason: Pain, Moderate (4-6) - Provider Discharge Summary Activity: routine, no sex for 6 weeks, no heavy lifting 4 weeks, no strenuous exercise Diet: routine Instructions: routine Additional instructions: [] Smoking cessation referral if applicable(refer to patient education folder for contact #) [] Refer to [facility]'s [facility] Booklet Call your doctor immediately for: * Fever > 100.5 * Heavy vaginal bleeding ( >1 pad per hour) * Severe persistent headache * Shortness of breath * Reddened, hot, painful area to leg or breast * Drainage or odor from incision. * Keep incision clean and dry at all times and follow doctor's instructions regarding bathing/showering - Follow up plan Follow up: PRAVEENA CHAND MD [Primary Care Provider] - 08/27/19 (Congratulations!!! Please schedule a check up in 4 weeks with the office. If you have any questions or concerns please call the office. Please take iron at home as prescribed.)
--- NOTE | 2019-07-12 09:04 | Post Anesthesia Evaluation ---
- Post Anesthesia Evaluation Patient Participated: Yes Airway Patent: Yes Stable Respiratory Function: Yes Nausea/Vomiting: No Temp > 96.8F: Yes Pain Manageable: Yes Adequeate Hydration: Yes Anesthesia Complications: No Block Receding Appropriately: Yes Patient on Ventilator: No
[2019-07-12] MEDS: FERROUS SULFATE 325 MG TAB PO SCH (09:45)
[2019-07-12] MEDS: PRENATAL VIT27-FE FUMARATE-FOLIC ACID VIT TAB PO SCH (09:45)
[2019-07-12] MEDS ORDERED: ACETAMINOPHEN 500 MG TAB PO ONE (16:00)
--- NOTE | 2019-07-12 19:22 | Event Note ---
Date: 07/12/19 (Had some cramping, doing much better) Called by RN because pt was having more cramping and pain. that she states was not relieved by 800mg of Motrin alone. Order to given pt Tylenol. Pt states this evening that she is doing much better and that having Tylenol and Motrin has helped her cramping. Will continue to monitor.
[2019-07-13] MEDS: FERROUS SULFATE 325 MG TAB PO SCH ×2 (00:03→10:41)
[2019-07-13] MEDS: IBUPROFEN 800 MG TAB PO SCH ×3 (00:03→14:25)
[2019-07-13] MEDS: ACETAMINOPHEN 325 MG TAB PO PRN ×3 (00:51→15:20)
--- NOTE | 2019-07-13 07:12 | Event Note ---
Date: 07/13/19 (pt aware she will be d/c today; she will inquire @ rooming in if baby needs to remain) Reviewed d/c instructions. Motrin for cramping and pain. Encouraged ambulation and hydration. Pt is breast feeding w/o issue. All questions addressed. Pt desires Nexplanon for BC. She will call office for PP appt in 4 weeks.
[2019-07-13] MEDS: PRENATAL VIT27-FE FUMARATE-FOLIC ACID VIT TAB PO SCH (10:41)
[2019-07-13 16:45] VITALS: BP 100/62
== END 2019-07-13 17:42 | disposition home or self-care (01) | DRG 775 ==
LOC: LD 10:45 → TRG 10:45 → LD 10:46 → OB 16:24
PROVIDERS: ADMIT Obstetrics & Gynecology; ATTEND Obstetrics & Gynecology
PROC: 10E0XZZ Delivery of Products of Conception, External Approach (ICD-10-PCS; principal; 2019-07-11)
PROC: 3E0R3BZ Introduction of Anesthetic Agent into Spinal Canal, Percutaneous Approach (ICD-10-PCS; 2019-07-11)
PROC: 00HU33Z Insertion of Infusion Device into Spinal Canal, Percutaneous Approach (ICD-10-PCS; 2019-07-11)
DX: O80 Encounter for full-term uncomplicated delivery (principal); Z3A.40 40 weeks gestation of pregnancy; Z37.0 Single live birth
CPT/HCPCS: 36415; 76815; 76819; 81001; 85014; 85018; 85027; 86592; 86850; 86900; 86901; G0378; J2590; J3010; J3490; J7120

== ENCOUNTER 2020-02-28 17:16 | Outpatient (CLI) | payer MEDICAID ==
[2020-02-28 18:04] VITALS: BP 97/56
[2020-02-28] MEDS ORDERED: HYDROcodone/ACETAMINOPHEN 10-325MG TAB PO PRN (18:19)
[2020-02-28] MEDS ORDERED: FAMOTIDINE 20 MG TAB PO ONE (18:41)
== END 2020-02-28 19:04 | disposition home or self-care (01) ==
LOC: TRG 17:16 → APU 17:17 → TRG 19:04
PROVIDERS: ATTEND Obstetrics & Gynecology
DX: O26.892 Other specified pregnancy related conditions, second trimester (principal); Z3A.20 20 weeks gestation of pregnancy
CPT/HCPCS: 59025

== ENCOUNTER 2020-07-17 10:42 | Inpatient (IN) | payer MEDICAID ==
[2020-07-17] MEDS ORDERED: ACETAMINOPHEN 325 MG TAB PO PRN (11:34)
[2020-07-17] MEDS ORDERED: miSOPROStol 200 MCG TAB PR PRN (11:34)
[2020-07-17] MEDS ORDERED: CARBOPROST TROMETHAMINE 250 MCG/1 ML INJ IM PRN (12:00)
[2020-07-17] MEDS ORDERED: ACETAMINOPHEN 500 MG TAB PO PRN ×2 (12:00→16:41)
[2020-07-17] MEDS ORDERED: PROMETHAZINE 25 MG TAB PO PRN ×2 (12:00→16:32)
[2020-07-17] MEDS ORDERED: ePHEDrine SULFATE 50 MG/1 ML INJ IV PRN (12:00)
[2020-07-17] MEDS ORDERED: OXYTOCIN DRIP 30 UNITS/500 ML BAG IV SCH ×3 (12:00→17:00)
[2020-07-17] MEDS ORDERED: ONDANSETRON 4 MG/2 ML INJ IV PRN ×2 (12:00→16:32)
[2020-07-17] MEDS ORDERED: LOPERAMIDE 2 MG CAP PO PRN (12:00)
[2020-07-17] MEDS ORDERED: TERBUTALINE 1 MG/1 ML INJ SUB-Q PRN (12:00)
[2020-07-17] MEDS ORDERED: OXYTOCIN 10 UNIT/1 ML INJ IM PRN (12:00)
[2020-07-17] MEDS ORDERED: NALOXONE 0.4 MG/1 ML INJ IV PRN (12:00)
[2020-07-17] MEDS ORDERED: LIDOCAINE (2%) 20 MG/1 ML VIAL 20 ML MDV INFILTRATI SCH (12:00)
[2020-07-17] MEDS ORDERED: METHYLERGONOVINE MALEATE 0.2 MG/ML VIAL IM PRN (12:00)
[2020-07-17] MEDS ORDERED: fentaNYL 100 MCG/2 ML INJ IV PRN (12:00)
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
[2020-07-17] MEDS: LACTATED RINGERS 1,000 ML IV SCH ×2 (12:42→15:04)
[2020-07-17 12:47] LABS: Hematocrit 23.2 % (30.3-42.9); Hemoglobin 7.6 gm/dl (10.1-14.3); Mean Corpuscular HGB Conc 33 % (30-34); Mean Corpuscular Volume 71 fl (79-97); Platelet Count 170 K/mm3 (140-440); Red Blood Count 3.26 M/mm3 (3.65-5.03); Red Cell Distribution Width 19.3 % (13.2-15.2)
--- NOTE | 2020-07-17 13:42 | Ultrasound Report ---
ULTRASOUND OBSTETRIC LIMITED INDICATION / CLINICAL INFORMATION: Presentation. TECHNIQUE: Transabdominal ultrasound imaging. COMPARISON: None available. FINDINGS: HEART RATE (beats per minute): 137 AMNIOTIC FLUID INDEX (cm) = not measured PRESENTATION: Cephalic. ADDITIONAL FINDINGS: None. IMPRESSION: Cephalic presentation Signer Name: Joseph Gonzalez Jr, MD Signed: 07/17/2020 1:37 PM Workstation Name: [id number]
--- NOTE | 2020-07-17 14:02 | Progress Note ---
Assessment and Plan - Patient Problems (1) History of hemorrhage Onset Date: ~07/17/20 Current Visit: Yes Status: Acute Plan to address problem: PPH medications to be in the room at time of delivery. (2) 40 weeks gestation of Current Visit: No Status: Acute Plan to address problem: Anticipate . Subjective - Subjective Date of service: 07/17/20 (AROM) Principal diagnosis: IUP @ 40 wks, labor Patient reports: movement normal Objective - Vital Signs Vital Signs: Vital Signs - 12hr 07/17/20 07/17/20 07/17/20 11:31 11:32 11:35 Temperature 98.7 F Pulse Rate 87 85 91 H Respiratory 20 Rate Blood Pressure 103/57 Blood Pressure 103/57 [Right] O2 Sat by Pulse 99 100 Oximetry 07/17/20 07/17/20 07/17/20 11:36 11:41 11:46 Temperature Pulse Rate 90 85 90 Respiratory Rate Blood Pressure Blood Pressure [Right] O2 Sat by Pulse 99 100 100 Oximetry 07/17/20 07/17/20 07/17/20 11:51 12:28 12:30 Temperature Pulse Rate 85 87 82 Respiratory Rate Blood Pressure 102/67 Blood Pressure [Right] O2 Sat by Pulse 100 100 Oximetry 07/17/20 07/17/20 07/17/20 12:33 12:38 12:43 Temperature Pulse Rate 91 H 81 87 Respiratory Rate Blood Pressure Blood Pressure [Right] O2 Sat by Pulse 100 100 100 Oximetry 07/17/20 07/17/20 07/17/20 12:48 12:53 12:58 Temperature Pulse Rate 80 84 84 Respiratory Rate Blood Pressure Blood Pressure [Right] O2 Sat by Pulse 100 100 100 Oximetry 07/17/20 07/17/20 07/17/20 13:03 13:08 13:13 Temperature Pulse Rate 88 82 86 Respiratory Rate Blood Pressure Blood Pressure [Right] O2 Sat by Pulse 100 100 100 Oximetry 07/17/20 07/17/20 07/17/20 13:18 13:23 13:28 Temperature Pulse Rate 89 83 84 Respiratory Rate Blood Pressure Blood Pressure [Right] O2 Sat by Pulse 100 100 100 Oximetry 07/17/20 07/17/20 07/17/20 13:33 13:38 13:43 Temperature Pulse Rate 80 95 H 94 H Respiratory Rate Blood Pressure Blood Pressure [Right] O2 Sat by Pulse 100 100 100 Oximetry 07/17/20 07/17/20 13:48 13:53 Temperature Pulse Rate 88 102 H Respiratory Rate Blood Pressure Blood Pressure [Right] O2 Sat by Pulse 100 100 Oximetry - Exam Narrative Exam: AROM, clear fluid. Breasts: deferred Abdomen: Present: normal appearance, soft Vulva: both: normal FHR: category 1 Cervical Dilatation: 6 Cervical Effacement Percentage: 70 station: -2 Uterine Contraction Pattern: Regular Uterine Tone Measurement Phase: Resting Uterine Contraction Intensity: Moderate - Labs Labs: Abnormal Labs 07/17/20 Unknown RBC 3.26 L Hgb 7.6 L Hct 23.2 L MCV 71 L MCH 23 L RDW 19.3 H Laboratory Results - last 24 hr 07/17/20 07/17/20 Unknown Unknown WBC 8.1 RBC 3.26 L Hgb 7.6 L Hct 23.2 L MCV 71 L MCH 23 L MCHC 33 RDW 19.3 H Plt Count 170 Blood Type O POSITIVE Antibody Screen Negative
--- NOTE | 2020-07-17 15:48 | Anesthesia Consultation ---
Anesthesia Consult and Med Hx Date of service: 07/17/20 - Airway Anesthetic Teeth Evaluation: Good ROM Head & Neck: Adequate Mental/Hyoid Distance: Adequate Mallampati Class: Class II Intubation Access Assessment: Probably Good - Pulmonary Exam CTA: Yes - Cardiac Exam Cardiac Exam: RRR - Pre-Operative Health Status ASA Pre-Surgery Classification: ASA2 Proposed Anesthetic Plan: Epidural - Pulmonary Hx Smoking: No Hx Asthma: No Hx Respiratory Symptoms: No SOB: No COPD: No Home Oxygen Therapy: No Hx Pneumonia: No Hx Sleep Apnea: No - Cardiovascular System Hx Hypertension: No Hx Coronary Artery Disease: No Hx Heart Attack/AMI: No Hx Angina: No Hx Percutaneous Transluminal Coronary Angioplasty (PTCA): No Hx Cardia Arrhythmia: No Hx Pacemaker: No Hx Internal Defibrillator: No Hx Valvular Heart Disease: No Hx Heart Murmur: No Hx Peripheral Vascular Disease: No - Central Nervous System Hx Neuromuscular Disorder: No Hx Seizures: No CVA: No Hx Back Pain: No Hx Psychiatric Problems: No - Gastrointestinal Hx Ulcer: No Hx Gastroesophageal Reflux Disease: No - Endocrine Hx Renal Disease: No Hx End Stage Renal Disease: No Hx Cirrhosis: No Hx Liver Disease: No Hx Insulin Dependent Diabetes: No Hx Non-Insulin Dependent Diabetes: No Hx Thyroid Disease: No Hx Hypothyroidism: No Hx Hyperthyroidism: No - Hematic Hx Anemia: No Hx Sickle Cell Disease: No - Other Systems Hx Alcohol Use: No Hx Substance Use: No Hx Cancer: No Hx Obesity: No
--- NOTE | 2020-07-17 15:49 | Progress Note ---
Labor Epidural - Labor Epidural Start Time: 15:08 Stop Time: 15:18 Performed by:: CAMILA CORDON Procedure: Patient is requesting a laboring epidural for laboring pain. Patient IDed, H&P reviewed, all questions and concerns were answered, and consent was signed. Timeout was performed at bedside. Patient in sitting position. Sterile prep and drape was performed. [3] ml of 1% lidocaine skin wheal at L[3]- L [4]. 18- gauge Touhy epidural needle was advanced to loss of resistance with air technique 6cm. Negative CSF negative blood. Epidural catheter advanced to [12] centimeters. [NEGATIVE] Aspiration [NEGATIVE] test dose. Sterile dressing applied. Patient tolerated procedure.
--- NOTE | 2020-07-17 16:22 | Procedure Note ---
OB Delivery Note - Delivery Date of Delivery: 07/17/20 [employer] Shovel Operator: ANIL WAKEFIELD Estimated blood loss: other (400 ml) - Vaginal Delivery presentation: vertex Delivery position: OA Delivery induction: none Delivery augmentation: rupture of membranes, pitocin Delivery monitor: external FHT, external uterine Route of delivery: Delivery placenta: spontaneous Delivery cord: 3 umbilical vessels Episiotomy: none Delivery laceration: none Anesthesia: epidural Delivery comments: of viable male over intact perineum. to mothers abdomen for skin to skin. Cord cut by FOC after cessation of pulse. Spontaneous delivery of placenta, intact, 3 vessels noted. Fundus firm with normal amount of bleeding after delivery noted. Perineum and vagina inspected, no lacerations noted. Mother and left in the care of RN. Sponges and instruments counted X2 and correct X 2. - Infant A at 1 minute: 8 at 5 minutes: 9 Gender: Male
[2020-07-17] MEDS ORDERED: miSOPROStol 100 MCG TAB PR PRN (16:32)
[2020-07-17] MEDS ORDERED: MAGNESIUM HYDROXIDE (MOM) ORAL LIQD UDC PO PRN (16:32)
[2020-07-17] MEDS ORDERED: diphenhydrAMINE 25 MG CAP PO PRN (16:32)
[2020-07-17] MEDS ORDERED: LANOLIN/ZINC/DIMETHICONE (LANSINOH) 7 GM TP PRN ×2 (16:32)
[2020-07-17] MEDS ORDERED: PROMETHAZINE 25 MG RECT SUPP PR PRN (16:32)
[2020-07-17] MEDS ORDERED: BENZOCAINE/MENTHOL 20/0.5% TOP SPRAY 56 GM TP PRN (16:32)
[2020-07-17] MEDS ORDERED: WITCH HAZEL/ GLYCERIN PAD TP PRN (16:32)
[2020-07-17] MEDS: DOCUSATE SODIUM 100 MG CAP PO SCH (21:00)
[2020-07-17] MEDS ORDERED: MINERAL OIL 30 ML ORAL LIQD PO PRN (22:00)
[2020-07-17] MEDS: IBUPROFEN 800 MG TAB PO SCH (23:16)
[2020-07-18] MEDS: IBUPROFEN 800 MG TAB PO SCH (05:28)
[2020-07-18] MEDS ORDERED: DIPHtheria,PERTUSSIS(ACELL),TETANUS VACCINE/PF 0.5 ML VIAL IM ONE (06:00)
[2020-07-18 06:26] LABS: Hematocrit 21.3 % (30.3-42.9); Hemoglobin 6.8 gm/dl (10.1-14.3)
--- NOTE | 2020-07-18 08:36 | Discharge Summary ---
Providers - Providers Date of Admission: 07/17/20 11:34 Date of discharge: 07/18/20 (desires d/c home) Attending physician: PRAVEENA CHAND Primary care physician: PRAVEENA CHAND Hospitalization Reason for admission: Labor Condition: Good Pertinent studies: post delivery H&H 6.8/21.3, asymptomatic anemia d/t acute blood loss. starting H&H 7.6/23.2. Procedures: Hospital course: uncomplicated and course Disposition: DC- TO HOME OR SELFCARE - Discharge Diagnoses (1) Anemia Status: Acute (2) Spontaneous vaginal delivery Status: Acute Comment: rto 4 weeks PP care Core Measure Documentation - Palliative Care Palliative Care/ Comfort Measures: Not Applicable - Core Measures Any of the following diagnoses?: none Exam - Constitutional Vitals: Temp Pulse Resp BP Pulse Ox 98.1 F 74 18 93/57 99 07/18/20 01:28 07/18/20 01:28 07/18/20 01:28 07/18/20 01:28 07/18/20 01:28 General appearance: Present: no acute distress, well-nourished - EENT Eyes: Present: PERRL ENT: hearing intact, clear oral mucosa - Neck Neck: Present: supple, normal ROM - Respiratory Respiratory effort: normal Respiratory: bilateral: CTA - Cardiovascular Rhythm: regular Heart Sounds: Absent: rub, click - Extremities Extremities: No edema - Abdominal General gastrointestinal: Present: soft, non-tender, non-distended, normal bowel sounds Female genitourinary: Present: normal - Integumentary Integumentary: Present: clear, warm, dry - Musculoskeletal Musculoskeletal: gait normal, strength equal bilaterally - Psychiatric Psychiatric: appropriate mood/affect, intact judgment & insight - Neurologic Neurologic: CNII-XII intact, moves all extremities - Additional findings Additional findings: breast and bottle feeding, lochia scant, fundus firm, no dizziness or feeling light headed when walking. VSSAF Plan Activity: no restrictions Diet: regular Follow up with: PRAVEENA CHAND MD [Primary Care Provider] - 7 Days (Congratulations! Please call [phone] to schedule your son's circumcision in 1 week and your visit in 4 weeks. Bring EMLA cream to your son's appointment and wait for instructions. Call for any questions or concerns.) Prescriptions: Docusate Sodium [Colace] 100 mg PO BID PRN #60 capsule PRN Reason: Constipation Lidocain2.5%/Prilocai2.5% [Emla] 1 applic TP ONCE #1 tube Ferrous Sulfate [Feosol 325 MG tab] 325 mg PO BID #60 tablet Ibuprofen [Motrin] 800 mg PO Q8HR PRN #30 tablet PRN Reason: Pain, Moderate (4-6)
[2020-07-18] MEDS: DOCUSATE SODIUM 100 MG CAP PO SCH (09:11)
[2020-07-18] MEDS ORDERED: PRENATAL VIT27-FE FUMARATE-FOLIC ACID VIT TAB PO SCH (10:00)
[2020-07-18] MEDS ORDERED: FERROUS SULFATE 325 MG TAB PO SCH (10:00)
[2020-07-18 17:32] VITALS: BP 93/59
== END 2020-07-18 18:00 | disposition home or self-care (01) | DRG 774 ==
LOC: TRG 10:42 → APU 10:47 → TRG 11:34 → LD 11:34 → OB 18:27
PROVIDERS: ADMIT Obstetrics & Gynecology; ATTEND Obstetrics & Gynecology
PROC: 10E0XZZ Delivery of Products of Conception, External Approach (ICD-10-PCS; principal; 2020-07-17)
PROC: 3E0R3BZ Introduction of Anesthetic Agent into Spinal Canal, Percutaneous Approach (ICD-10-PCS; 2020-07-17)
PROC: 00HU33Z Insertion of Infusion Device into Spinal Canal, Percutaneous Approach (ICD-10-PCS; 2020-07-17)
DX: O48.0 Post-term pregnancy (principal); O72.1 Other immediate postpartum hemorrhage; Z3A.40 40 weeks gestation of pregnancy; Z37.0 Single live birth; D62 Acute posthemorrhagic anemia; Z20.822 Contact with and (suspected) exposure to COVID-19; O90.81 Anemia of the puerperium
CPT/HCPCS: 36415; 76815; 85014; 85018; 85027; 86592; 86850; 86900; 86901; G0378; J2590; J7120; U0003

== ENCOUNTER 2020-07-24 12:41 | Emergency (ER) | payer MEDICAID ==
--- NOTE | 2020-07-24 13:03 | Event Note ---
ED Screening Note Date of service: 07/24/20 Time: 13:02 ED Screening Note: 29-year-old female who is currently 7 days with no significant past medical history presents to the ER today complaint of a headache, and pain to her entire right side. She states that the pain started on July 19. She states she called her [employer] ROOM HELPER today and it was recommended she come to the ER. She reports associated chest throbbing. She reports no other symptoms. She states that there was no complications with this no her previous pregnancies. This initial assessment/diagnostic orders/clinical plan/treatment(s) is/are subject to change based on patients health status, clinical progression and re- assessment by fellow clinical providers in the ED. Further treatment and workup at subsequent clinical providers discretion. Patient/guardian urged not to elope from the ED as their condition may be serious if not clinically assessed and managed. Initial orders include: CBC, CMP, chest x-ray, EKG, urinalysis, troponin
--- NOTE | 2020-07-24 13:26 | XRay Report ---
CHEST 2 VIEWS INDICATION / CLINICAL INFORMATION: Chest pain; 7 days post . COMPARISON: None available. FINDINGS: SUPPORT DEVICES: None. HEART / MEDIASTINUM: No significant abnormality. LUNGS / PLEURA: No significant pulmonary or pleural abnormality. No pneumothorax. ADDITIONAL FINDINGS: No significant additional findings. IMPRESSION: 1. No acute findings. Signer Name: Eleno Cardenas MD Signed: 07/24/2020 1:21 PM Workstation Name: [id number]
[2020-07-24 13:28] LABS: Basophils % (Auto) 0.4 % (0.0-1.8); Eosinophils % (Auto) 0.5 % (0.0-4.3); Hemoglobin 8.1 gm/dl (10.1-14.3); Lymphocytes # (Auto) 1.5 K/mm3 (1.2-5.4); Lymphocytes % (Auto) 16.7 % (13.4-35.0); Mean Corpuscular HGB Conc 31 % (30-34); Mean Corpuscular Volume 72 fl (79-97); Monocytes # (Auto) 0.7 K/mm3 (0.0-0.8); Monocytes % (Auto) 7.9 % (0.0-7.3); Platelet Count 308 K/mm3 (140-440); Red Blood Count 3.61 M/mm3 (3.65-5.03); Red Cell Distribution Width 19.7 % (13.2-15.2)
--- NOTE | 2020-07-24 13:34 | Emergency Department Report ---
ED General Adult HPI - General Chief complaint: Headache Stated complaint: HEAD/BACK PAIN Time Seen by Provider: 07/24/20 13:00 Source: patient Mode of arrival: Ambulatory Limitations: No Limitations - History of Present Illness Initial comments: Patient is a 29-year-old female who presents emergency department for evaluation of right-sided headache, radiating into her right upper back and right upper chest x5 days since delivering her child. Patient states pain is pleuritic, denies calf pain or swelling, denies fever or cough, denies sore throat, denies nausea vomiting diarrhea. - Related Data Previous Rx's Medication Instructions Recorded Last Taken Type Ferrous Sulfate [Feosol 325 MG tab] 325 mg PO BID #60 tablet 07/12/19 Unknown Rx Ibuprofen [Motrin] 800 mg PO Q8HR PRN #90 tablet 07/12/19 Unknown Rx Ibuprofen [Motrin] 800 mg PO Q8HR PRN #30 tablet 07/17/20 Unknown Rx Lidocain2.5%/Prilocai2.5% [Emla] 1 applic TP ONCE #1 tube 07/17/20 Unknown Rx Docusate Sodium [Colace] 100 mg PO BID PRN #60 capsule 07/18/20 Unknown Rx Ferrous Sulfate [Feosol 325 MG tab] 325 mg PO BID #60 tablet 07/18/20 Unknown Rx Allergies Allergy/AdvReac Type Severity Reaction Status Date / Time No Known Allergies Allergy Verified 11/25/18 09:29 ED Review of Systems ROS: Stated complaint: HEAD/BACK PAIN Other details as noted in HPI Comment: All other systems reviewed and negative ED Past Medical Hx - Past Medical History Previous Medical History?: No Hx Hypertension: No Hx Heart Attack/AMI: No Hx Congestive Heart Failure: No Hx Diabetes: No Hx Deep Vein Thrombosis: No Hx Liver Disease: No Hx Renal Disease: No Hx Sickle Cell Disease: No Hx Seizures: No Hx Asthma: No Hx COPD: No Hx HIV: No - Surgical History Past Surgical History?: No Hx Pacemaker: No Hx Internal Defibrillator: No - Social History Smoking Status: Never Smoker Substance Use Type: None - Medications Home Medications: Home Medications Medication Instructions Recorded Confirmed Last Taken Type Ferrous Sulfate [Feosol 325 MG tab] 325 mg PO BID #60 tablet 07/12/19 07/17/20 Unknown Rx Ibuprofen [Motrin] 800 mg PO Q8HR PRN #90 tablet 07/12/19 07/17/20 Unknown Rx Ibuprofen [Motrin] 800 mg PO Q8HR PRN #30 tablet 07/17/20 Unknown Rx Lidocain2.5%/Prilocai2.5% [Emla] 1 applic TP ONCE #1 tube 07/17/20 Unknown Rx Docusate Sodium [Colace] 100 mg PO BID PRN #60 capsule 07/18/20 Unknown Rx Ferrous Sulfate [Feosol 325 MG tab] 325 mg PO BID #60 tablet 07/18/20 Unknown Rx ED Physical Exam - General Limitations: No Limitations General appearance: alert, in no apparent distress - Head Head exam: Present: atraumatic, normocephalic - Eye Eye exam: Present: normal appearance - ENT ENT exam: Present: mucous membranes moist - Neck Neck exam: Present: normal inspection - Respiratory Respiratory exam: Present: normal lung sounds bilaterally. Absent: respiratory distress - Cardiovascular Cardiovascular Exam: Present: regular rate, normal rhythm. Absent: systolic murmur, diastolic murmur, rubs, gallop - GI/Abdominal GI/Abdominal exam: Present: soft, normal bowel sounds - Extremities Exam Extremities exam: Present: normal inspection - Back Exam Back exam: Present: normal inspection - Neurological Exam Neurological exam: Present: alert, oriented X3 - Psychiatric Psychiatric exam: Present: normal affect, normal mood - Skin Skin exam: Present: warm, dry, intact, normal color. Absent: rash ED Course Vital Signs 07/24/20 07/24/20 07/24/20 12:57 14:13 15:45 Temperature 98.6 F 98.4 F 98.4 F Pulse Rate 60 66 66 Respiratory 22 18 18 Rate Blood Pressure 111/75 Blood Pressure 122/84 122/84 [Left] O2 Sat by Pulse 99 100 100 Oximetry - Reevaluation(s) Reevaluation #1: 07/25/20 07:50 Patient treated with Reglan IV and Tylenol p.o. with complete resolution of sy mptoms. On reexamination, patient remains in no acute distress with nonfocal neurologic exam. ED Medical Decision Making - Lab Data Result diagrams: 07/24/20 13:16 07/24/20 13:16 Vital Signs 07/24/20 07/24/20 07/24/20 12:57 14:13 15:45 Temperature 98.6 F 98.4 F 98.4 F Pulse Rate 60 66 66 Respiratory 22 18 18 Rate Blood Pressure 111/75 Blood Pressure 122/84 122/84 [Left] O2 Sat by Pulse 99 100 100 Oximetry Labs 07/24/20 07/24/20 07/24/20 13:16 13:16 13:47 WBC 9.0 RBC 3.61 L Hgb 8.1 L Hct 26.0 L MCV 72 L MCH 22 L MCHC 31 RDW 19.7 H Plt Count 308 Lymph % (Auto) 16.7 Greer % (Auto) 7.9 H Eos % (Auto) 0.5 Baso % (Auto) 0.4 Lymph # (Auto) 1.5 Greer # (Auto) 0.7 Eos # (Auto) 0.0 Baso # (Auto) 0.0 Seg Neutrophils % 74.5 H Seg Neutrophils # 6.7 D-Dimer 690.35 H Sodium 141 Potassium 4.0 Chloride 107.6 H Carbon Dioxide 25 Anion Gap 12 BUN 13 Creatinine 0.7 Estimated GFR > 60 BUN/Creatinine Ratio 19 Glucose 92 Calcium 8.7 Total Bilirubin 0.30 AST 9 ALT 8 Alkaline Phosphatase 139 H Troponin T < 0.010 Total Protein 7.0 Albumin 3.4 L Albumin/Globulin Ratio 0.9 - EKG Data -: EKG Interpreted by Me (Sinus rhythm at 67, no ST-T changes, normal QRS) - Radiology Data Radiology results: report reviewed [facility] [address] [place] [address] Cat Scan Report Signed Patient: PASCUAL BRAVO MR#: [id number] : 1990 Acct:[id number] Age/Sex: 29 / F ADM Date: 07/24/20 Loc: ED Attending Dr: Ordering Physician: SARIKA ZARAGOZA MD Date of Service: 07/24/20 Procedure(s): CT angio chest Accession Number(s): [id number] cc: SARIKA ZARAGOZA MD CTA CHEST WITH IV CONTRAST INDICATION: Chest pain for 2 days. TECHNIQUE: Axial CT images were obtained through the chest after injection of 100 cc IV contrast. 3 plane MIP reconstructions were produced. All CT scans at this location are performed using CT dose reduction for ALARA by means of automated exposure control. COMPARISON: None available. FINDINGS: PULMONARY ARTERIES: No pulmonary emboli. THORACIC AORTA: No acute abnormality. HEART: Normal. CORONARY ARTERIES: No significant calcification. PLEURA: No pleural effusion. No pneumothorax. LYMPH NODES: No significant adenopathy. LUNGS: No acute air space or interstitial disease. ADDITIONAL FINDINGS: None. UPPER ABDOMEN: No acute findings. SKELETAL STRUCTURES: No significant osseous abnormality. IMPRESSION: 1. No CT evidence for pulmonary embolism. 2. No acute findings. Signer Name: Murali Manzo MD Signed: 07/24/2020 3:10 PM Workstation Name: [id number] Transcribed By: TL Dictated By: Murali Manzo MD Electronically Authenticated By: Murali Manzo MD Signed Date/Time: 07/24/20 1510 DD/ 1507 TD/TT: [place] [address] XRay Report Signed Patient: PASCUAL BRAVO MR#: [id number] : 1990 Acct:[id number] Age/Sex: 29 / F ADM Date: 07/24/20 Loc: ED Attending Dr: Ordering Physician: ADRYAN ARMANDO Date of Service: 07/24/20 Procedure(s): XR chest routine 2V Accession Number(s): [id number] cc: ADRYAN ARMANDO Fluoro Time In Minutes: CHEST 2 VIEWS INDICATION / CLINICAL INFORMATION: Chest pain; 7 days post . COMPARISON: None available. FINDINGS: SUPPORT DEVICES: None. HEART / MEDIASTINUM: No significant abnormality. LUNGS / PLEURA: No significant pulmonary or pleural abnormality. No pneumothorax. ADDITIONAL FINDINGS: No significant additional findings. IMPRESSION: 1. No acute findings. Signer Name: Eleno Cardenas MD Signed: 07/24/2020 1:21 PM Workstation Name: [id number] Transcribed By: VENKATA Dictated By: Eleno Cardenas MD Electronically Authenticated By: Eleno Cardenas MD Signed Date/Time: 07/24/20 132 DD/ 20 TD/TT: Critical care attestation.: If time is entered above; I have spent that time in minutes in the direct care of this critically ill patient, excluding procedure time. ED Disposition Clinical Impression: Headache Disposition: DC-01 TO HOME OR SELFCARE Is pt being admited?: No Condition: Stable Instructions: General Headache Without Cause Additional Instructions: Follow-up with primary care doctor in 1 to 2 days for reevaluation. Return to the emergency department for worsening symptoms. Referrals: PRIMARY CARE,MD [Primary Care Provider] - 3-5 Days
[2020-07-24] MEDS ORDERED: METOCLOPRAMIDE 10 MG/2 ML INJ IV ONE (13:39)
[2020-07-24] MEDS ORDERED: ACETAMINOPHEN 325 MG TAB PO ONE (13:41)
[2020-07-24 13:45] LABS: Alanine Aminotransferase 8 units/L (7-56); Albumin 3.4 g/dL (3.9-5); Blood Urea Nitrogen 13 mg/dL (7-17); Calcium 8.7 mg/dL (8.4-10.2); Hemolysis Index 0
[2020-07-24 13:46] LABS: BUN/Creatinine Ratio 19
[2020-07-24 14:17] VITALS: BP 122/84
--- NOTE | 2020-07-24 15:14 | Cat Scan Report ---
CTA CHEST WITH IV CONTRAST INDICATION: Chest pain for 2 days. TECHNIQUE: Axial CT images were obtained through the chest after injection of 100 cc IV contrast. 3 plane MIP re constructions were produced. All CT scans at this location are performed using CT dose reduction for ALARA by means of automated exposure control. COMPARISON: None available. FINDINGS: PULMONARY ARTERIES: No pulmonary emboli. THORACIC AORTA: No acute abnormality. HEART: Normal. CORONARY ARTERIES: No significant calcification. PLEURA: No pleural effusion. No pneumothorax. LYMPH NODES: No significant adenopathy. LUNGS: No acute air space or interstitial disease. ADDITIONAL FINDINGS: None. UPPER ABDOMEN: No acute findings. SKELETAL STRUCTURES: No significant osseous abnormality. IMPRESSION: 1. No CT evidence for pulmonary embolism. 2. No acute findings. Signer Name: Murali Manzo MD Signed: 07/24/2020 3:10 PM Workstation Name: [id number]
== END 2020-07-24 15:45 | disposition home or self-care (01) ==
LOC: ED 12:41
DX: R51.9 Headache, unspecified (principal); M54.6 Pain in thoracic spine; R07.89 Other chest pain; Z79.1 Long term (current) use of non-steroidal anti-inflammatories (NSAID); Z79.899 Other long term (current) drug therapy
CPT/HCPCS: 36415; 71046; 71275; 80053; 84484; 85025; 85379; 93005; 96374; 99284; J2765; Q9967